=== PATIENT | female | born 1970 | race Caucasian/White ===

== ENCOUNTER 2016-05-26 18:51 | Emergency (ER) | payer BC ==
--- NOTE | 2016-05-26 19:27 | UC ---
Cardiac HPI - HPI Summary HPI Summary: The patient comes in today for: 1. Chest pain: Onset: "Several weeks"--starting as a "pinchy" pain. But, has gotten worse in more constant and in severity. Palliative/provocative: Activity, deep breaths, eating, body position--all don' t affect it. Quality: Pressure. "Like I swallowed something too big." Region: Retrosternal, possibly pain in the neck. Severity: 04/25 Time: Constant. Associated symptoms: Previous evaluation: She has been seen by her primary care provider about this 3 days ago. She has a stress test scheduled on the of this month. She has blood test scheduled for the . Since the pressure got worse, she called her primary care provider who told her to go to the ER or [facility]. She came here "because it is cheaper and closer." Dypsnea: None. But, she will sigh more often. She states that this feels good. Wheezing: None. Previous heart or lung disease: She has "PVC's." She had a stress test 2 year ago (from her description, it sounds like a nuclear stress test) (-). CAD risk factors: Smoker: (-). HTN: (-). DM: (-). Previous disease: (-). Fm Hx: (+)--brother has had "a couple of strokes in his 40's." Cholesterol: (?) . Nausea: None. * - History of Current Complaint Chief Complaint: UCChestPain Stated Complaint: CHEST COMPLAINT Time Seen by Provider: 05/26/16 18:55 Hx Obtained From: Patient - Allergy/Home Medications Allergies/Adverse Reactions: Allergies Allergy/AdvReac Type Severity Reaction Status Date / Time No Known Allergies Allergy Verified 12/19/14 06:45 Home Medications: Home Medications NK [No Home Medications Reported] 05/26/16 [History Confirmed 05/26/16] PMH/Surg Hx/FS Hx/Imm Hx Previously Healthy: Yes Endocrine History Of: Denies: Diabetes, Thyroid Disease, Hyperthyroidism, Hypothyroidism, Dyslipidemia Cardiovascular History Of: Denies: Cardiac Disorders, Hypertension, Pacemaker/ICD, Myocardial Infarction , Congestive Heart Failure, Atrial Fibrillation, Deep Vein Thrombosis, Bleeding Disorders Respiratory History Of: Denies: COPD, Asthma, Bronchitis, Pneumonia, Pulmonary Embolism GI/ History Of: Denies: Gastroesophageal Reflux, Ulcer, Gastrointestinal Bleed, Gall Bladder Disease, Kidney Stones, Diverticulitis, Renal Disease, Urosepsis Neurological History Of: Reports: Migraine - She does not take any medications for them. Denies: TIA, CVA, Dementia, Seizures Psychological History Of: Denies: Anxiety, Depression, Bipolar Disorder, Schizophrenia, Post Traumatic Stress Disorder Cancer History Of: Denies: Lung Cancer, Colorectal Cancer, Breast Cancer, Prostate Cancer, Cervical Cancer Other History Of: Negative For: HIV, Hepatitis B, Hepatitis C, Anticoagulant Therapy - Surgical History Surgical History: Yes Surgery Procedure, Year, and Place: CSECTION 2008, 2010 [facility] [place] - Family History Known Family History: Positive: Cardiac Disease, Hypertension - Social History Occupation: Employed Full-time Alcohol Use: None Substance Use Type: None Smoking Status (MU): Never Smoked Tobacco Review of Systems Constitutional: Negative Skin: Negative Eyes: Negative ENT: Negative Respiratory: Negative Cardiovascular: Chest Pain Gastrointestinal: Negative Genitourinary: Negative All Other Systems Reviewed And Are Negative: Yes Physical Exam Triage Information Reviewed: Yes Appearance: Well-Appearing, No Pain Distress, Well-Nourished, Other: - She is friendly, cooperative, and animated. Vital Signs Reviewed: Yes Eyes: Positive: Conjunctiva Clear. Negative: Discharge ENT: Positive: Hearing grossly normal. Negative: Pharyngeal erythema, Nasal congestion, Nasal drainage, TM bulging, TM dull, TM red, Tonsillar swelling, Tonsillar exudate Dental: Negative: Gross Decay/Caries @, Dental Fracture @ Neck: Positive: Supple, Nontender, No Lymphadenopathy. Negative: Nuchal Rigidity Respiratory: Positive: Lungs clear, No respiratory distress, No accessory muscle use. Negative: Crackles, Wheezing Cardiovascular: Positive: RRR, No Murmur Abdomen Description: Positive: Nontender, No Organomegaly, Soft. Negative: Distended, Guarding Musculoskeletal: Positive: Strength Intact, ROM Intact, No Edema, Other: - Pressing on the sternum did not reproduce her chest discomfort symptoms. Neurological: Positive: Alert, Muscle Tone Normal Psychological: Positive: Age Appropriate Behavior, Consolable Skin: Negative: rashes, breakdown Diagnostics - Laboratory Diagnostic Studies Completed/Ordered: EKG: Rate: 79. Rhythm: sinus. Ectopy: None. Acute changes: ST elevation in V1-2? - Assessment/Plan Course Of Treatment: The patient was told that I did not see any obvious changes on the EKG that would be strong evidence for a heart attack, but we are not able to rule out IL's here in the [facility]. Therefore, my recommendation, if she wanted to rule out cardiac problem (which I told her was safest) was to go to the ER. She wanted to go via private car. - Clinical Impression Provider Diagnoses: Chest pain - Physician Notifications Discussed Patient Care With: Ms. Carey Mallyjono Discharge - Discharge Plan Condition: Stable Disposition: AGAINST MEDICAL ADVICE
[2016-05-26 20:00] VITALS: BP 117/70
== END 2016-05-26 19:57 | disposition left against medical advice (07) ==
LOC: UCEAST 18:51
DX: R07.89 Other chest pain (principal)
CPT/HCPCS: 93005; 99212; G0463

== ENCOUNTER 2016-05-26 20:10 | Observation (INO) | payer BC ==
[2016-05-26] MEDS ORDERED: Aspirin Low Dose CHEW TAB* 81 MG PO ONE (20:45)
[2016-05-26 21:15] LABS: Hematocrit 42 % (35-47); Hemoglobin 14.2 g/dl (12.0-16.0); Mean Corpuscular HGB Conc 34 g/dl (31-36); Mean Corpuscular Hemoglobin 29 pg (27-31); Mean Corpuscular Volume 86 fL (80-97); Mean Platelet Volume 9 um3 (7.4-10.4); Red Blood Count 4.91 10^6/ul (4.0-5.4); Red Cell Distribution Width 14 % (10.5-15); White Blood Count 8.3 10^3/ul (3.5-10.8)
[2016-05-26 21:31] LABS: Albumin 4.6 g/dL (3.2-5.2); Calcium 9.7 mg/dL (8.6-10.3); EGFR African American 100.2 (>60); EGFR Non-African American 77.9 (>60); Globulin 3.1 g/dL (2-4); Potassium 3.6 mmol/L (3.5-5.0); Total Bilirubin 0.4 mg/dL (0.2-1.0); Total Protein 7.7 g/dL (6.4-8.9)
[2016-05-26] MEDS ORDERED: Aspirin TAB* 325 MG PO ONE (22:04)
[2016-05-26] MEDS ORDERED: Nitroglycerin 2% OINT* 1 GM PAK TOPICAL ONE (22:05)
[2016-05-26] MEDS ORDERED: Ondansetron INJ* 2 MG/ML VIAL IV PRN (22:50)
[2016-05-26] MEDS ORDERED: Acetaminophen TAB* 325 MG PO PRN (22:50)
--- NOTE | 2016-05-26 22:58 | RAD ---
INDICATION: Chest pain. COMPARISON: Comparison is made with a prior chest x-ray study from February 17, 2013. TECHNIQUE: Dual-energy PA and lateral views of the chest were obtained. FINDINGS: The heart is within normal limits in size. Mediastinal and hilar contours appear within normal limits. The lungs are hyperinflated and clear. No pneumothorax or pleural effusion is seen. Nipple shadows project as nodules above both lung bases as was noted on the prior study. IMPRESSION: FINDINGS CONSISTENT WITH COPD, NO EVIDENCE FOR ACUTE FINDING.
--- NOTE | 2016-05-26 23:08 | ED ---
abbey Kramer Timothy, scribed for JosevirgieKapil on 05/26/16 at 2144 . HPI Chest Pain - HPI Summary HPI Summary: Beth Vivar is a 45 yo female sent here from [facility] for her intermittent 2/10 CP and tightness for the past 2 weeks, worse and constant today. She states there are no aggravating or alleviating factors. She denies nusea, vomiting, or dizziness. Her MHx includes PVC's, migraine, post- depression. - History of Current Complaint Chief Complaint: EDChestPainROMI Time Seen by Provider: 05/26/16 21:36 Hx Obtained From: Patient Onset/Duration: Started Weeks Ago, Still Present, Worse Since - today Timing: Constant Initial Severity: Moderate Current Severity: Moderate Pain Intensity: 2 Pain Scale Used: 0-10 Numeric Chest Pain Location: Mid Sternal Chest Pain Radiates: No Character: Tightness Aggravating Factor(s): Nothing Alleviating Factor(s): Nothing Associated Signs and Symptoms: Positive: Chest Pain - Allergy/Home Medications Allergies/Adverse Reactions: Allergies Allergy/AdvReac Type Severity Reaction Status Date / Time No Known Allergies Allergy Verified 12/19/14 06:45 PMH/Surg Hx/FS Hx/Imm Hx Endocrine/Hematology History: Denies: Hx Anticoagulant Therapy, Hx Diabetes, Hx Thyroid Disease Cardiovascular History: Reports: Other Cardiovascular Problems/Disorders - PT STATES A HX OF PVC's Denies: Hx Congestive Heart Failure, Hx Deep Vein Thrombosis, Hx Hypertension , Hx Myocardial Infarction, Hx Pacemaker/ICD Respiratory History: Denies: Hx Asthma, Hx Chronic Obstructive Pulmonary Disease (COPD), Hx Lung Cancer, Hx Pneumonia, Hx Pulmonary Embolism GI History: Denies: Hx Gall Bladder Disease, Hx Gastrointestinal Bleed, Hx Ulcer, Hx Urosepsis History: Denies: Hx Kidney Stones, Hx Renal Disease Sensory History: Reports: Hx Contacts or Glasses - GLASSES Denies: Hx Hearing Aid Opthamlomology History: Reports: Hx Contacts or Glasses - GLASSES Neurological History: Reports: Hx Migraine - She does not take any medications for them. Denies: Hx Dementia, Hx Seizures, Hx Transient Ischemic Attacks (TIA) Psychiatric History: Denies: Hx Anxiety, Hx Depression, Hx Schizophrenia, Hx Bipolar Disorder - Surgical History Surgery Procedure, Year, and Place: CSECTION 2008, 2010 [facility] Hx Anesthesia Reactions: No Infectious Disease History: No Infectious Disease History: Denies: Hx Clostridium Difficile, Hx Hepatitis, Hx Human Immunodeficiency Virus (HIV), Hx of Known/Suspected MRSA, Hx Shingles, Hx Tuberculosis, Hx Known/ Suspected VRE, Hx Known/Suspected VRSA, History Other Infectious Disease, Traveled Outside the [place] in Last 30 Days - Family History Known Family History: Positive: Cardiac Disease, Hypertension - Social History Alcohol Use: None Substance Use Type: Reports: None Smoking Status (MU): Never Smoked Tobacco Review of Systems Constitutional: Negative Eyes: Negative ENT: Negative Positive: Chest Pain Respiratory: Negative Negative: Shortness Of Breath Gastrointestinal: Negative Negative: Abdominal Pain, Vomiting, Nausea Genitourinary: Negative Musculoskeletal: Negative Skin: Negative Neurological: Negative Psychological: Normal All Other Systems Reviewed And Are Negative: Yes Physical Exam Triage Information Reviewed: Yes Vital Signs On Initial Exam: Initial Vitals Temp Pulse Resp BP Pulse Ox 97.9 F 93 16 114/72 100 05/26/16 20:11 05/26/16 20:11 05/26/16 20:11 05/26/16 20:11 05/26/16 20:11 Vital Signs Reviewed: Yes Appearance: Positive: Well-Appearing, No Pain Distress, Well-Nourished Skin: Positive: Warm, Skin Color Reflects Adequate Perfusion, Dry Head/Face: Positive: Normal Head/Face Inspection Eyes: Positive: EOMI, YAN ENT: Positive: Normal ENT inspection Neck: Positive: Supple, Nontender Respiratory/Lung Sounds: Positive: Clear to Auscultation, Breath Sounds Present Cardiovascular: Positive: RRR, Pulses are Symmetrical in both Upper and Lower Extremities Musculoskeletal: Positive: Normal, Strength/ROM Intact Neurological: Positive: Normal, Sensory/Motor Intact, Alert, Oriented to Person Place, Time Psychiatric: Positive: Normal Diagnostics - Vital Signs Vital Signs Temp Pulse Resp BP Pulse Ox 05/26/16 21:08 98.0 F 75 16 121/66 100 05/26/16 20:11 97.9 F 93 16 114/72 100 - Laboratory Lab Results: Lab Results 05/26/16 05/26/16 05/26/16 Range/Units 21:06 21:06 21:06 WBC 8.3 (3.5-10.8) 10^3/ul RBC 4.91 (4.0-5.4) 10^6/ul Hgb 14.2 (12.0-16.0) g/dl Hct 42 (35-47) % MCV 86 (80-97) fL MCH 29 (27-31) pg MCHC 34 (31-36) g/dl RDW 14 (10.5-15) % Plt Count 229 (150-450) 10^3/ul MPV 9 (7.4-10.4) um3 Neut % (Auto) 51.3 (38-83) % Lymph % (Auto) 35.9 (25-47) % [place] % (Auto) 8.5 (1-9) % Eos % (Auto) 3.1 (0-6) % Baso % (Auto) 1.2 (0-2) % Absolute Neuts (auto) 4.3 (1.5-7.7) 10^3/ul Absolute Lymphs (auto) 3.0 (1.0-4.8) 10^3/ul Absolute Monos (auto) 0.7 (0-0.8) 10^3/ul Absolute Eos (auto) 0.3 (0-0.6) 10^3/ul Absolute Basos (auto) 0.1 (0-0.2) 10^3/ul Absolute Nucleated RBC 0.01 10^3/ul Nucleated RBC % 0.1 INR (Anticoag Therapy) 1.00 (0.89-1.11) Sodium 137 (133-145) mmol/L Potassium 3.6 (3.5-5.0) mmol/L Chloride 104 (101-111) mmol/L Carbon Dioxide 27 (22-32) mmol/L Anion Gap 6 (2-11) mmol/L BUN 12 (6-24) mg/dL Creatinine 0.80 (0.51-0.95) mg/dL Est GFR ( Amer) 100.2 (>60) Est GFR (Non-Af Amer) 77.9 (>60) BUN/Creatinine Ratio 15.0 (8-20) Glucose 100 (70-100) mg/dL Calcium 9.7 (8.6-10.3) mg/dL Total Bilirubin 0.40 (0.2-1.0) mg/dL AST 14 (13-39) U/L ALT 11 (7-52) U/L Alkaline Phosphatase 61 (34-104) U/L Troponin I 0.00 (<0.04) ng/mL Total Protein 7.7 (6.4-8.9) g/dL Albumin 4.6 (3.2-5.2) g/dL Globulin 3.1 (2-4) g/dL Albumin/Globulin Ratio 1.5 (1-3) Result Diagrams: 05/26/16 21:06 05/26/16 21:06 Lab Statement: Any lab studies that have been ordered have been reviewed, and results considered in the medical decision making process. - Radiology CXR Xray Interpretation: No Acute Changes - IMPRESSION: FINDINGS CONSISTENT WITH COPD, NO EVIDENCE FOR ACUTE FINDING. Radiology Interpretation Completed By: Radiologist - EKG 2215 Cardiac Rate: NL EKG Interpretation: NSR @ 73 BPM, nonspecific ST changes Chest Pain Course/Dx - Course Assessment/Plan: Beth Vivar is a 45 yo female presenting to [facility] with intermittent 2/10 CP for the past 2 weeks, worse and constant today. Afte review of her lab work and imaging studies, as well as discussion with Dr. Menjivar, she will be admitted to [facility] for her CP to rule out PR. - Chest Pain Differential Diagnosis/HQI/PQRI: Acute PR, ACS, Angina, CHF, Chest Wall, Lower Respiratory Infection, Pulmonary Edema - Diagnoses Provider Diagnoses: Chest pain - Provider Notifications Discussed Care Of Patient With: 2224 - Dr. Menjivar (hospitalist) - discussed Pt condition, will admit to r/o PR Instructed by Provider To: Admit As Inpatient Discharge - Discharge Plan Condition: Stable Disposition: ADMITTED TO [facility] Referrals: Ritu Jordan MD [Primary Care Provider] - The documentation as recorded by the abbey haile Timothy accurately reflects the service I personally performed and the decisions made by , Kapil Wellington.
--- NOTE | 2016-05-27 02:40 | HP ---
HISTORY AND PHYSICAL: DATE OF ADMISSION: 05/26/16 PRIMARY CARE PROVIDER: Dr. Jordan. ATTENDING PHYSICIAN WHILE IN THE HOSPITAL: Dr. Bertram Menjivar* (report dictated by Beatriz Kang NP). CHIEF COMPLAINT: Chest pain. HISTORY OF PRESENTING ILLNESS: Mrs. Vivar is a 45-year-old female patient with a history of PVCs, migraines, and anxiety. She comes into the ER today stating the last several weeks, she has had occasional pinching in her chest off and on. She has noticed the frequencies increased over the weekend and the duration as well. She says that this discomfort does not come along with exertion. There is no associated nausea or diaphoresis with this discomfort. She has been following closely with Dr. Jordan, and Dr. Jordan had ordered an outpatient stress test and it was going to be done on the . She was concerned today though because the discomfort changed. She had a knot in the center of her chest, as she described it, and more of a discomfort; it really was not any pain. She had no shortness of breath. She has no recent trips or travel, no leg pain, calf tenderness or swelling. She states that she had not had any recent URI symptoms or any fevers or chills, and she says that the discomfort does not get worse with a deep breath. She says she has been feeling extremely anxious though over the last several weeks related to her personal life, but she was concerned and came in, was evaluated Dr. Wellington. There was concern because she had the chest discomfort. She says that today the chest discomfort was there all day, sometimes worse at times, but really there all day today and we were asked to evaluate for admission. PAST MEDICAL HISTORY: Significant for: 1. PVC. 2. Migraine. 3. Anxiety. PAST SURGICAL HISTORY: She does have a history of D and C, , bladder repair and tubal ligation. HOME MEDICATIONS: She has denied. ALLERGIES TO MEDICATIONS: No known drug allergies. FAMILY HISTORY: Mother has high blood pressure. Father has history of dementia. Her brother had a history of a CVA. SOCIAL HISTORY: She does not smoke. She does not drink. She has 2 children. Surrogate decision maker is her . She is a veterinary tech. REVIEW OF SYSTEMS: There is no documented fever. She denied having any significant weight change. There was no double vision. There is no ear discharge. She denies having any rhinorrhea. There is no sore throat. No thyroid enlargement. There is chest pain per my HPI. There is no orthopnea, no nocturnal dyspnea. There is no abdominal pain. No nausea, no vomiting. No dysuria, no frequency, no seizure. No loss of consciousness. No pruritus and no skin ulcerations. Review of 14 systems completed, all others negative. PHYSICAL EXAMINATION GENERAL: Ms. Vivar is a 45-year-old female patient. She does not appear to be in any acute distress. She is sitting in the ER stretcher. She is awake, alert , and oriented x3. VITAL SIGNS: Blood pressure 119/65 with a pulse of 78, respirations 18, O2 sat of 100%, temperature 98.0. HEENT: Head atraumatic, normocephalic. Eyes: EOMs intact. Sclerae anicteric , not pale. Throat: Oral mucosa appears to be moist. No oropharyngeal erythema. NECK: Supple. LUNGS: Clear to auscultation bilaterally. No wheezes, rales or rhonchi. HEART: Sounds S1, S2. Regular rate and rhythm. No murmurs, rubs, or gallops. ABDOMEN: Soft, flat, nontender. Bowel sounds present. EXTREMITIES: Pulses were 2+ throughout. She is able to move all 4 extremities with 5/5 strength. NEUROLOGIC: The patient is awake. She is alert. She is oriented x3. She had no gross focal deficits. SKIN: Grossly intact. DIAGNOSTIC STUDIES/LABORATORY DATA: Today revealed a WBC of 8.3, RBC of 4.91, hemoglobin 14.2, hematocrit 42, platelet count 329, INR was 1. Sodium 137, potassium 2.6, chloride 104, bicarb 27. BUN 12, creatinine 0.80, glucose 100, calcium 9.7. Total bili 0.4, AST 14, ALT 11, alk phos 61. Troponin 0. Chest x-ray shows no acute infiltrates, pulmonary edema, and there was no effusions noted. Normal cardiac silhouette. She had an EKG obtained today at urgent care and here in the ER. EKG did show a normal sinus rhythm. No ST elevations or T- wave inversions were noted, rate of 70. Old medical records were reviewed. ASSESSMENT AND PLAN: Mrs. Vivar is a 45-year-old female patient coming into the ER today with complaints of chest discomfort. She will be admitted under observation status for: 1. Chest pain. At this point, the chest story is atypical with the discomfort today. It sounds like it was waxing and waning which makes me concerned. I do think she would benefit from a repeat troponins, EKG, lipid panel, A1c, aspirin and a stress test in the morning and telemetry overnight. 2. Anxiety. Continue with supportive care. 3. Migraine. She has p.r.n. Tylenol ordered. 4. Premature ventricular contractions. She will be on telemetry. We will monitor. Her lytes are stable. 5. DVT prophylaxis. We will place her on SCDs. 6. Fluids, electrolytes and nutrition. She will have a heart healthy diet and NPO after midnight. 7. Code status. Full code. TIME SPENT: On the admission was 60 minutes, greater than half the time was spent [id number] with the patient, obtaining my history and physical, the other half time was spent going over the plan of care with the patient and implementing my plan of care. I did discuss the plan of care with my attending, Dr. Menjivar; he is in agreement. BEATRIZ KANG NP CC: Dr. Jordan* [id number]/CPS #: [id number] MTDD
[2016-05-27 04:57] LABS: Hematocrit 40 % (35-47); Hemoglobin 13.3 g/dl (12.0-16.0); Mean Corpuscular HGB Conc 34 g/dl (31-36); Mean Corpuscular Hemoglobin 29 pg (27-31); Mean Corpuscular Volume 86 fL (80-97); Mean Platelet Volume 9 um3 (7.4-10.4); Red Blood Count 4.65 10^6/ul (4.0-5.4); Red Cell Distribution Width 13 % (10.5-15); White Blood Count 7.3 10^3/ul (3.5-10.8)
[2016-05-27 05:08] LABS: BUN/Creatinine Ratio 14.8 (8-20); Calcium 9.3 mg/dL (8.6-10.3); EGFR African American 98.8 (>60); EGFR Non-African American 76.8 (>60); HDL Cholesterol 51.4 mg/dL; Potassium 3.4 mmol/L (3.5-5.0)
[2016-05-27 07:25] VITALS: BP 118/66
[2016-05-27] MEDS ORDERED: Potassium Chlor TAB* 20 MEQ TAB.ER PO ONE (08:34)
[2016-05-27] MEDS ORDERED: Aspirin Low Dose CHEW TAB* 81 MG PO SCH (09:00)
--- NOTE | 2016-05-27 13:05 | RAD ---
HISTORY: Chest pain COMPARISONS: None TECHNIQUE: A 1 day stress/rest myocardial perfusion study was performed, with exercise stress. The exercise portion was performed using the Franklyn protocol, for a total METs of 12.8. The stress portion was monitored by Dr. Li. Gated SPECT imaging was performed, with CT-based attenuation correction DOSE: Stress: Technetium 99m tetrofosmin, 25.52 millicuries, injected at 11:32 AM on May 27, 2016 Rest: Technetium 99m tetrofosmin, 10.26 millicuries, injected at 9:15 AM on May 27, 2016 Pharmacologic agent: None FINDINGS: CARDIAC MONITORING: Peak heart rate of 180 bpm, 107% of predicted EF: 75 % TID: 1.08 MOTION: Normal motion, with normal wall thickening. PERFUSION: There is a small, partially reversible defect of the septum OTHER: None IMPRESSION: SMALL PARTIALLY REVERSIBLE PERFUSION DEFECT OF THE SEPTUM. NORMAL EJECTION FRACTION ASSESSMENT: LOW RISK. Based on imaging criteria from ACC/AHA 2002. Guideline Update for the Management of Patient's with Chronic Stable Angina, table 23. Noninvasive Risk Stratification.
--- NOTE | 2016-05-27 13:44 | PN ---
Subjective Date of Service: 05/27/16 Interval History: Patient seen and examined at bedside following stress test. She denies CP, SOB, abd pain, n/v. She reports no further episodes of chest discomfort and is anxious to go home given the weather conditions. We discussed her stress test results and other possible causes of chest pain, which she will pursue with her PCP. Patient will call for f/u appointment. Telemetry: SR 60s-70s Family History: Unchanged from Admission Social History: Unchanged from Admission Past Medical History: Unchanged from Admission Objective Active Medications: Acetaminophen (Tylenol Tab*) 650 mg PO Q4H PRN PRN Reason: FEVER/PAIN Aspirin (Aspirin Low Dose Tab*) 81 mg PO DAILY HAL Last Admin: 05/27/16 08:31 Dose: 81 mg Ondansetron HCl (Zofran Inj*) 4 mg IV Q6H PRN PRN Reason: NAUSEA Vital Signs 05/26/16 05/26/16 05/26/16 23:30 23:41 23:43 Temperature Pulse Rate 77 74 Respiratory 18 13 16 Rate Blood Pressure 106/65 (mmHg) O2 Sat by Pulse 98 99 Oximetry 05/27/16 05/27/16 05/27/16 00:00 00:30 01:00 Temperature 98.5 F Pulse Rate 68 Respiratory 19 15 15 Rate Blood Pressure 110/67 (mmHg) O2 Sat by Pulse 100 Oximetry 05/27/16 05/27/16 05/27/16 01:01 02:00 03:00 Temperature Pulse Rate Respiratory 15 15 14 Rate Blood Pressure (mmHg) O2 Sat by Pulse Oximetry 05/27/16 05/27/16 05/27/16 03:26 04:00 05:00 Temperature 98.7 F Pulse Rate 83 Respiratory 16 18 15 Rate Blood Pressure 102/66 (mmHg) O2 Sat by Pulse 99 Oximetry 05/27/16 05/27/16 05/27/16 05:59 06:00 07:00 Temperature Pulse Rate Respiratory 15 14 18 Rate Blood Pressure (mmHg) O2 Sat by Pulse Oximetry 05/27/16 05/27/16 05/27/16 07:14 07:21 08:00 Temperature 97.9 F Pulse Rate 65 Respiratory 22 16 17 Rate Blood Pressure 118/66 (mmHg) O2 Sat by Pulse 100 Oximetry 05/27/16 09:00 Temperature Pulse Rate Respiratory 14 Rate Blood Pressure (mmHg) O2 Sat by Pulse Oximetry Oxygen Devices in Use Now: None Appearance: Female patient, OOB to chair, in NAD Eyes: PERRLA Ears/Nose/Mouth/Throat: Clear Oropharnyx, Mucous Membranes Moist Neck: NL Appearance and Movements; NL JVP Respiratory: Symmetrical Chest Expansion and Respiratory Effort, Clear to Auscultation Cardiovascular: NL Sounds; No Murmurs; No JVD, RRR Abdominal: NL Sounds; No Tenderness; No Distention Extremities: No Edema Neurological: Alert and Oriented x 3 Lines/Tubes/Other Access: Clean, Dry and Intact Peripheral IV Nutrition: Taking PO's Result Diagrams: 05/27/16 04:13 05/27/16 04:13 Additional Lab and Data: Lab Results 05/26/16 05/26/16 05/26/16 Range/Units 21:06 21:06 21:06 WBC 8.3 (3.5-10.8) 10^3/ul RBC 4.91 (4.0-5.4) 10^6/ul Hgb 14.2 (12.0-16.0) g/dl Hct 42 (35-47) % MCV 86 (80-97) fL MCH 29 (27-31) pg MCHC 34 (31-36) g/dl RDW 14 (10.5-15) % Plt Count 229 (150-450) 10^3/ul MPV 9 (7.4-10.4) um3 Neut % (Auto) 51.3 (38-83) % Lymph % (Auto) 35.9 (25-47) % Sterling % (Auto) 8.5 (1-9) % Eos % (Auto) 3.1 (0-6) % Baso % (Auto) 1.2 (0-2) % Absolute Neuts (auto) 4.3 (1.5-7.7) 10^3/ul Absolute Lymphs (auto) 3.0 (1.0-4.8) 10^3/ul Absolute Monos (auto) 0.7 (0-0.8) 10^3/ul Absolute Eos (auto) 0.3 (0-0.6) 10^3/ul Absolute Basos (auto) 0.1 (0-0.2) 10^3/ul Absolute Nucleated RBC 0.01 10^3/ul Nucleated RBC % 0.1 INR (Anticoag Therapy) 1.00 (0.89-1.11) Sodium 137 (133-145) mmol/L Potassium 3.6 (3.5-5.0) mmol/L Chloride 104 (101-111) mmol/L Carbon Dioxide 27 (22-32) mmol/L Anion Gap 6 (2-11) mmol/L BUN 12 (6-24) mg/dL Creatinine 0.80 (0.51-0.95) mg/dL Est GFR ( Amer) 100.2 (>60) Est GFR (Non-Af Amer) 77.9 (>60) BUN/Creatinine Ratio 15.0 (8-20) Glucose 100 (70-100) mg/dL Calcium 9.7 (8.6-10.3) mg/dL Total Bilirubin 0.40 (0.2-1.0) mg/dL AST 14 (13-39) U/L ALT 11 (7-52) U/L Alkaline Phosphatase 61 (34-104) U/L Troponin I 0.00 (<0.04) ng/mL Total Protein 7.7 (6.4-8.9) g/dL Albumin 4.6 (3.2-5.2) g/dL Globulin 3.1 (2-4) g/dL Albumin/Globulin Ratio 1.5 (1-3) Assess/Plan/Problems-Billing Assessment: Ms. Vivar is a 45 yo female with a PMH of PVCs, migraines and anxiety who presented to the ED on 05/26/16 with concern for chest pain. - Patient Problems (1) Chest pain Code(s): R07.9 - CHEST PAIN, UNSPECIFIED Comment: Troponins flat and unremarkable. No significant ST changes. Stress test with no ST changes of ischemia. On the nuclear stress test, there is a small partially reversible defect of the septum. I did review this finding with Dr. Hutchinson, who stated that no further intervention is needed at this time. Outpatient f/u with PCP. Lipid profile and HgbA1c WNL. (2) PVC (premature ventricular contraction) Code(s): I49.3 - VENTRICULAR PREMATURE DEPOLARIZATION Comment: Recommend holter monitor if persists. Outpatient follow-up. (3) Anxiety Code(s): F41.9 - ANXIETY DISORDER, UNSPECIFIED Comment: Supportive care. (4) DVT prophylaxis Code(s): WKG8433 - Comment: SCDs. Status and Disposition: OBV admit. D/c to home.
--- NOTE | 2016-05-28 02:32 | DS ---
MEDICINE DISCHARGE SUMMARY: DATE OF ADMISSION: 05/26/16 DATE OF DISCHARGE: 05/27/16 PRIMARY CARE PHYSICIAN: Dr. Jordan. PROVIDER: Adriel Dumont NP. ATTENDING PHYSICIAN: Dr. Karen Lora* (dictated by Adriel Dumont NP). PRIMARY CARE PHYSICIAN: Ritu Jordan MD. PRIMARY DISCHARGE DIAGNOSIS: Chest pain. SECONDARY DISCHARGE DIAGNOSES: 1. History of premature ventricular contractions. 2. History of migraines. 3. Anxiety. MEDICATIONS AT DISCHARGE: No home medications. HOSPITAL COURSE AND STAY: For further details, please refer to the H and P provided by Mikhail Kang NP, on 05/26/16. In summary, Ms. Vivar is a 45-year- old female who presented to the ED with concern for occasional chest discomfort that she describes as intermittent pinching. This discomfort did not accompany exertion and there was no associated nausea or diaphoresis. She has had no shortness of breath. No recent trips or travel. No leg pain, no calf tenderness or swelling. She has had no recent URI symptoms, fevers, or chills. Her chest pain did sound atypical. It was noted that the patient did have an outpatient stress test scheduled in the upcoming weeks; however, with her waxing and waning chest pain, she was admitted for troponins, EKG, lab testing, and a stress test. The patient continued to deny any chest pain overnight. Her troponins were unremarkable at 0.00, 0.01, and 0.00 respectively. The patient has a hemoglobin A1c of 4.8 and her triglycerides were 39, cholesterol 144, LDL 85, and HDL 51.4. The patient underwent a stress test this morning. It showed baseline EKG abnormalities, which consisted of subtle ST-T wave abnormalities in leads II, III, and aVF on standing, ST downsloping, and T-wave inversion in leads II, III, aVF, V4 through V6 with heart rate of 101. The patient exercised by standard [place] protocol for 10 minutes achieving 12.8 METS heart rate to 100% age predicted. She had normal 1-minute recovery heart rate. Normal increase in blood pressure with exercise. No anginal symptoms provoked. Baseline EKG abnormalities are described with exercise. There are no ST changes of ischemia. EKG reverted back to her baseline abnormalities late recovery. No arrhythmias provoked. Her nuclear medicine scan report shows an EF of 75% with normal motion and normal wall thickening. There is a small partially reversible defect in the septum. Her assessment is low risk. I did discuss this with Dr. Hutchinson, the parts cataloger, who stated the patient should follow up with her primary care physician. No further interventions are required. The patient states that she had no further concerning symptoms here in the hospital and felt that this may be related to other issues, but she will pursue this with Dr. Jordan. The patient declined to have nitro paste while she was here and declined any other interventions. She desired a stress test and is now requesting to go home. CONCERNS AT DISCHARGE: Ms. Vivar will be discharged to home on 05/27/16 for plan to follow up with Dr. Jordan. Offices are closed today; however, we will have our planner chief help set up an appointment for the patient later on this week. The patient said that she also has an appointment scheduled later on this month with her physician. DIET: May resume regular diet. ACTIVITY: As tolerated. CONDITION: Stable. DISPOSITION: To home. TIME SPENT: Time spent on this discharge was approximately 40 minutes. Again, this is only a brief summary of the patient's hospital course and stay. For further details, please refer to the full medical record. If you have any further questions or need further assistance, please feel free to contact me at . ADRIEL DUMONT NP CC: Dr. Jordan* [id number]/[facility] #: [id number] DANIELLE
== END 2016-05-27 14:00 | disposition home or self-care (01) ==
LOC: ED 20:10 → MEDTELE 23:07
PROVIDERS: ADMIT Hospitalist; ATTEND Internal Medicine
DX: R07.9 Chest pain, unspecified (principal); I49.3 Ventricular premature depolarization; F41.9 Anxiety disorder, unspecified; Z82.49 Family history of ischemic heart disease and other diseases of the circulatory system
CPT/HCPCS: 36415; 71020; 78452; 80048; 80053; 80061; 83036; 84484; 85025; 85610; 93005; 93017; 96374; 99283; A9270-GY; A9502; G0378

== ENCOUNTER 2017-10-18 14:01 | Emergency (ER) | payer BC ==
[2017-10-18 14:11] VITALS: BP 118/70
--- NOTE | 2017-10-18 15:49 | UC ---
Complaint Female HPI - HPI Summary HPI Summary: 46 y/o female presents to the urgent care c/o burning pain and frequency on urination since Thursday morning. Pt reports pelvic pressure. Pain w/ urination is 5/10. Pt has taking Azo OTC and cranberry pills and drinking plenty of water to alleviate symptoms. Pt denies flank pain, vaginal D/C, fever, SOB, chest pain , abdominal pain, N/v/D. - History Of Current Complaint Chief Complaint: UCGU Stated Complaint: POSS UTI Time Seen by Provider: 10/18/17 15:44 Hx Obtained From: Patient Hx Last Menstrual Period: September 30, 2017 Onset/Duration: Gradual Onset, Lasting Days - 3 days, Still Present, Worse Since - yesterday Timing: Intermittent Severity Initially: Mild Severity Currently: Moderate Pain Intensity: 5 Pain Scale Used: 0-10 Numeric Character: Burning Aggravating Factor(s): Urination Alleviating Factor(s): Nothing Associated Signs And Symptoms: Negative: Fever, Back Pain, Vaginal Bleeding/ Discharge, Vaginal Discharge, Genital Swelling - Risk Factors Ectopic Risk Factor: Negative Ovarian Torsion Risk Factor: Negative - Allergies/Home Medications Allergies/Adverse Reactions: Allergies Allergy/AdvReac Type Severity Reaction Status Date / Time No Known Allergies Allergy Verified 12/19/14 06:45 Home Medications: Home Medications Cranberry 10/18/17 [History] Pumpkin Seed Extract/Soy Germ [Azo Bladder Control Capsule] 10/18/17 [History] PMH/Surg Hx/FS Hx/Imm Hx Previously Healthy: Yes - Pt denies PMHX Other History Of: Negative For: HIV, Hepatitis B, Hepatitis C, Anticoagulant Therapy - Surgical History Surgical History: Yes Surgery Procedure, Year, and Place: CSECTION 2008, 2010 [facility] [place]. tubal ligation 2014 - Family History Known Family History: Positive: Cardiac Disease, Hypertension Family History: breast cancer - Social History Occupation: Employed Full-time Lives: With Family Alcohol Use: None Substance Use Type: None Smoking Status (MU): Never Smoked Tobacco Review of Systems Constitutional: Negative Skin: Negative Eyes: Negative ENT: Negative Respiratory: Negative Cardiovascular: Negative Gastrointestinal: Negative Genitourinary: Dysuria, Frequency, Urgency Motor: Negative Neurovascular: Negative Musculoskeletal: Negative Neurological: Negative Psychological: Negative Is Patient Immunocompromised?: No All Other Systems Reviewed And Are Negative: Yes Physical Exam - Summary Physical Exam Summary: VITAL SIGNS: Reviewed. GENERAL: Patient is a well developed and nourished female who is sitting comfortable in the examining table. Patient is not in any acute respiratory distress. HEAD AND FACE: No signs of trauma. No ecchymosis, hematomas or skull depressions. No sinus tenderness. EYES: PERRLA, EOMI x 2, No injected conjunctiva, clear watery eyes, no nystagmus. No photophobia. EARS: Hearing grossly intact. Ear canals and tympanic membranes are within normal limits. MOUTH: pharynx with no erythema, no exudates,no palatal petechiae. no B/L tonsillar enlargement Uvula in midline. NECK: Supple, trachea is midline, no lymphadenopathy, no JVD, no carotid bruit, no c-spine tenderness, neck with full ROM. CHEST: Symmetric, no tenderness at palpation LUNGS: Clear to auscultation bilaterally. No wheezing or crackles. CVS: Regular rate and rhythm, S1 and S2 present, no murmurs or gallops appreciated. ABDOMEN: Soft, non-tender. No signs of distention. No rebound no guarding, and no masses palpated. Bowel sounds are normal. BACK:no scoliosis or lesions, non tender to palpation, No B/L CVA tenderness EXTREMITIES: FROM in all major joints, no edema, no cyanosis or clubbing. NEURO: Alert and oriented x 3. No acute neurological deficits. Speech is normal and follows commands. SKIN: Dry and warm Triage Information Reviewed: Yes Vital Signs: Initial Vital Signs Temp 98.0 F 10/18/17 14:05 Pulse 69 10/18/17 14:05 Resp 16 10/18/17 14:05 BP 118/70 10/18/17 14:05 Pulse Ox 100 10/18/17 14:05 Complaint Female Dx - Course Course Of Treatment: 46 y/o female presents to the urgent care c/o burning pain and frequency on urination since Thursday morning. Pt reports pelvic pressure. Pain w/ urination is 5/10. Pt has taking Azo OTC and cranberry pills and drinking plenty of water to alleviate symptoms. Pt denies flank pain, vaginal D/ C, fever, SOB, chest pain, abdominal pain, N/v/D. Hx obtained. PE:WNL. UA ordred , UA results: trace, Leukoesterase 1+ Nitrates:positive, trace of glucose. Pt Rx Bactrim PO x 7 days. Pyridium 100mg PO TID x 2 days. Advised to increase fluid intake. Urine sent for culture if any abnormality Pt will be notified for further treatment. Pt advised If symptoms do not improve to return to the urgent care or f/u with PCP, specially since there is a trace of glucose in urine and FMHX of DM tyepe II. Pt understood and agreed. Left the clinic ambulating. - Differential Dx/Diagnosis Differential Diagnosis/HQI/PQRI: Cervicitis, Renal Colic, Urinary Tract Infection Provider Diagnoses: 1- Urinary tract infection. 2-Dysuria Discharge - Sign-Out/Discharge Documenting (check all that apply): Patient Departure - D/c home - Discharge Plan Condition: Stable Disposition: HOME Prescriptions: Phenazopyridine TAB* [Pyridium 100 mg TAB*] 100 mg PO TID #6 tab Sulfamethox/Trimethoprim DS* [Bactrim DS 800/160 TAB*] 1 tab PO BID #14 tab Patient Education Materials: Urinary Tract Infection in Women (ED), Dysuria (ED ) Referrals: Ritu Jordan MD [Primary Care Provider] - 3 Days Additional Instructions: 1- Please take Bactrim PO x 7 days. Pyridium 100 mg PO TID x 2 days to alleviate urinary symptoms. Increase increase fluid intake. drink cranberry juice. 2-Urine sent for culture if any abnormality, you will be notified for further treatment. 3-If symptoms do not improve please return to the urgent care or f/u with your PCP for further management. - Billing Disposition and Condition Condition: STABLE Disposition: Home
== END 2017-10-18 16:10 | disposition home or self-care (01) ==
LOC: UCEAST 14:01
DX: N39.0 Urinary tract infection, site not specified (principal); Z82.49 Family history of ischemic heart disease and other diseases of the circulatory system
CPT/HCPCS: 81003; 84702; 87077; 87086; 87186; 99212; G0463

== ENCOUNTER 2018-03-08 10:30 | Emergency (ER) | payer BC ==
[2018-03-08 10:48] VITALS: BP 117/63
--- NOTE | 2018-03-08 11:31 | UC ---
Complaint Female HPI - HPI Summary HPI Summary: 47 yo female presents with urinary burning, pressure, and frequency that began this morning. She tells me that she has a history of chronic UTIs and this feels the same. Denies fever, chills, abdominal pain, n/v, hematuria, or flank pain. - History Of Current Complaint Chief Complaint: UCGU Stated Complaint: BURNING URINATION Time Seen by Provider: 03/08/18 11:31 Hx Obtained From: Patient Hx Last Menstrual Period: unk Onset/Duration: Sudden Onset Timing: Constant Severity Initially: Moderate Severity Currently: Moderate Pain Intensity: 5 Pain Scale Used: 0-10 Numeric - Allergies/Home Medications Allergies/Adverse Reactions: Allergies Allergy/AdvReac Type Severity Reaction Status Date / Time No Known Allergies Allergy Verified 03/08/18 10:48 PMH/Surg Hx/FS Hx/Imm Hx - Additional Past Medical History Additional PMH: None Other History Of: Negative For: HIV, Hepatitis B, Hepatitis C, Anticoagulant Therapy - Surgical History Surgical History: Yes Surgery Procedure, Year, and Place: CSECTION 2008, 2010 [facility] [place]. tubal ligation 2014 - Family History Known Family History: Positive: Cardiac Disease, Hypertension Family History: breast cancer - Social History Occupation: Employed Full-time Lives: With Family Alcohol Use: None Substance Use Type: None Smoking Status (MU): Never Smoked Tobacco Review of Systems All Other Systems Reviewed And Are Negative: Yes Constitutional: Positive: Negative Skin: Positive: Negative Respiratory: Positive: Negative Cardiovascular: Positive: Negative Gastrointestinal: Positive: Negative Genitourinary: Positive: Dysuria Neurovascular: Positive: Negative Neurological: Positive: Negative Psychological: Positive: Negative Physical Exam - Summary Physical Exam Summary: GENERAL: NAD. WDWN. No pain distress. SKIN: No rashes, sores, lesions, or open wounds. NECK: Supple. Nontender. No lymphadenopathy. CHEST: CTAB. No r/r/w. No accessory muscle use. Breathing comfortably and in no distress. CV: RRR. Without m/r/g. Pulses intact. Cap refill <2seconds ABDOMEN: Soft. NTTP. No distention or guarding. No CVA tenderness. Bowel sounds present NEURO: Alert. PSYCH: Age appropriate behavior. Triage Information Reviewed: Yes Vital Signs: Initial Vital Signs Temp 98.3 F 03/08/18 10:45 Pulse 78 03/08/18 10:45 Resp 17 12/24/18 10:45 BP 117/63 03/08/18 10:45 Pulse Ox 100 03/08/18 10:45 Laboratory Tests 03/08/18 11:51 POC Urine Color Yellow POC Urine Clarity Cloudy POC Urine pH 6.0 POC Ur Specif [place] 1.010 POC Urine Protein Negative POC Ur Glucose (UA) Negative POC Urine Ketones Negative POC Urine Blood 2+ A POC Urine Nitrite Positive A POC Urine Bilirubin Negative POC Urine Urobilinogen 0.2 POC U Leukocyte Esteras 3+ A Vital Signs Reviewed: Yes Complaint Female Dx - Course Course Of Treatment: UA with signs of infection. Will treat and send for culture - Differential Dx/Diagnosis Provider Diagnosis: UTI (urinary tract infection) Discharge - Sign-Out/Discharge Documenting (check all that apply): Patient Departure All imaging exams completed and their final reports reviewed: No Studies - Discharge Plan Condition: Stable Disposition: HOME Prescriptions: Nitrofurantoin Monohyd/M-Cryst [Macrobid 100 mg Capsule] 100 mg PO BID #10 cap Nitrofurantoin Monohyd/M-Cryst [Macrobid 100 mg Capsule] 100 mg PO BID #10 cap Phenazopyridine TAB* [Pyridium 100 mg TAB*] 100 mg PO TID #6 tab Phenazopyridine TAB* [Pyridium 100 mg TAB*] 100 mg PO TID #6 tab Patient Education Materials: Urinary Tract Infection in Women (ED) Referrals: Ritu Jordan MD [Primary Care Provider] - Additional Instructions: If you develop a fever, shortness of breath, chest pain, new or worsening symptoms - please call your PCP or go to the ED. - Billing Disposition and Condition Condition: STABLE Disposition: Home
== END 2018-03-08 12:15 | disposition home or self-care (01) ==
LOC: UCEAST 10:30
DX: N39.0 Urinary tract infection, site not specified (principal)
CPT/HCPCS: 81003; 87086; 99212; G0463

== ENCOUNTER 2018-09-02 19:36 | Emergency (ER) | payer BC ==
--- OUTSIDE RECORDS SUMMARY | 2018-09-02 19:42 | XMS REPORT | Continuity of Care Document ---
:1970 External Reference #:[id number] Author Name Edgardo Ivey, OD Address [address] [place] [address] Care Team Providers Name Role Phone Julian BLACKWELL, Ritu Care Team Information Search Marketing Analyst Unavailable Julian BLACKWELL, Ritu Primary Care Physician Unavailable Payers Date Identification Numbers Payment Provider Subscriber Policy Number: [id number] [place] [employer] Beth Vivar PayID: [id number] [address] [place] [address] Family History Date Family Member(s) Observation Comments General Glaucoma General Glasses General Cancer General Diabetes General High BP Father Glasses Father No Current Problems Mother Glaucoma Mother High BP Mother Cancer Mother Glasses Social History Type Date Description Comments Sex Unknown ETOH Use Denies alcohol use Tobacco Use Start: Unknown Patient has never smoked Smoking Status Reviewed: 08/12/18 Patient has never smoked Allergies, Adverse Reactions, Alerts Description No Known Drug Allergies Medications Active Medications SIG Qnty Indications Ordering Provider Date Doxycycline one tab qd x 2 14tabs Maco Thakkar, 07/29/2018 Monohydrate weeks M.D. 50mg Tablets Neomycin/Polymyxin/De apply 1/4 inch 3.500gm Edgardo Ivey, OD 07/22/2018 xamethasone ribbon to right upper lid and 3.5-07525-6.1 lid margin three Ointment times a day x 1 week History Medications No Active Medications Unknown 07/22/2018 - 07/22/2018 Vital Signs Date Vital Result Comment 07/29/2018 10:42am Intraocular Pressure Right Eye 20 mmHg 07/22/2018 1:54pm Intraocular Pressure Right Eye 18 mmHg Intraocular Pressure Left Eye 18 mmHg Encounters Type Date Location Provider Dx Diagnosis Office Visit 07/29/2018 Main Office Edgardo Ivey, OD H00.11 Chalazion right 10:15a upper eyelid Office Visit 07/22/2018 Main Office Edgardo Ivey, OD H00.11 [place] right 1:30p upper eyelid H01.02A Squamous blepharitis right eye, upper and lower eyelids H01.02B Squamous blepharitis left eye, upper and lower eyelids Plan of Treatment 08/12/2018 - Edgardo Ivey, ODH00.11 [place]azion right upper eyelidFollow up:2 weeks possible office surgery with dr thakkar right upper lid
--- OUTSIDE RECORDS SUMMARY | 2018-09-02 19:42 | XMS REPORT | Continuity of Care Document ---
:1970 External Reference #:[id number] Author Name Maco Thakkar M.D. Address [address] [place] [address] Care Team Providers Name Role Phone Julian BLACKWELL, Ritu Care Team Information Academic Manager Unavailable Julian BLACKWELL, Ritu Primary Care Physician Unavailable Payers Date Identification Numbers Payment Provider Subscriber Policy Number: [id number] [employer] Bteh Vivar PayID: [id number] [address] [place] [address] Family History Date Family Member(s) Observation Comments General Glaucoma General Glasses General Cancer General Diabetes General High BP Father Glasses Father No Current Problems Mother Glaucoma Mother High BP Mother Cancer Mother Glasses Social History Type Date Description Comments Sex Unknown ETOH Use Denies alcohol use Tobacco Use Start: Unknown Patient has never smoked Smoking Status Reviewed: 09/01/18 Patient has never smoked Allergies, Adverse Reactions, Alerts Description No Known Drug Allergies Medications Active Medications SIG Qnty Indications Ordering Provider Date Doxycycline one tab every 14tabs Maco Thakkar, 07/29/2018 Monohydrate day x 2 weeks M.D. 50mg Tablets Neomycin/Polymyxin/De apply 1/4 inch 3.500gm Edgardo Ivey, OD 07/22/2018 xamethasone ribbon to right upper lid and 3.5-17272-6.1 lid margin three Ointment times a day x 1 week History Medications No Active Medications Unknown 07/22/2018 - 07/22/2018 Vital Signs Date Vital Result Comment 08/12/2018 10:38am Intraocular Pressure Right Eye 19 mmHg 07/29/2018 10:42am Intraocular Pressure Right Eye 20 mmHg 07/22/2018 1:54pm Intraocular Pressure Right Eye 18 mmHg Intraocular Pressure Left Eye 18 mmHg Procedures Date Code Description Status 09/01/2018 [id number] Eye Exam Est Intermediate Completed Encounters Type Date Location Provider Dx Diagnosis Office Visit 08/12/2018 Main Office Edgardo Ivey, OD H00.11 Chalazion right 10:15a upper eyelid Office Visit 07/29/2018 Main Office Edgardo Uche, OD H00.11 Chalazion right 10:15a upper eyelid Office Visit 07/22/2018 Main Office Edgardo Ivey, OD H00.11 Chalazion right 1:30p upper eyelid H01.02A Squamous blepharitis right eye, upper and lower eyelids H01.02B Squamous blepharitis left eye, upper and lower eyelids Plan of Treatment 09/01/2018 - Maco Thakkar M.D.H00.11 Chalazion right upper eyelidFollow up:1 yr full
[2018-09-02 19:56] VITALS: BP 121/69
--- NOTE | 2018-09-02 20:03 | UC ---
Complaint Female HPI - HPI Summary HPI Summary: Recent 2 day vaginal itching after a doxy course for chalazion. she has tried otc antifungals but not helping. has intense vaginal itching. denies dysuria. - History Of Current Complaint Chief Complaint: UCGU Stated Complaint: YEAST INFECTION Time Seen by Provider: 09/02/18 19:59 Hx Obtained From: Patient Hx Last Menstrual Period: unk Timing: Constant Pain Intensity: 4 Pain Scale Used: 0-10 Numeric Character: Sharp, Burning Aggravating Factor(s): [place] Alleviating Factor(s): Nothing - Allergies/Home Medications Allergies/Adverse Reactions: Allergies Allergy/AdvReac Type Severity Reaction Status Date / Time No Known Allergies Allergy Verified 09/02/18 19:56 PMH/Surg Hx/FS Hx/Imm Hx - Additional Past Medical History Additional PMH: no chronic conditions. Other History Of: Negative For: HIV, Hepatitis B, Hepatitis C, Anticoagulant Therapy - Surgical History Surgical History: Yes Surgery Procedure, Year, and Place: CSECTION 2008, 2010 [facility] [place]. tubal ligation 2014 - Family History Known Family History: Positive: Cardiac Disease, Hypertension Family History: breast cancer - Social History Alcohol Use: None Substance Use Type: None Smoking Status (MU): Never Smoked Tobacco Review of Systems All Other Systems Reviewed And Are Negative: Yes Constitutional: Negative: Fever, Chills, Fatigue Skin: Negative: Rash Genitourinary: Positive: Vaginal/Penile Itching. Negative: Dysuria, Vaginal/ Penile Discharge, Vaginal/Penile Pain, Vaginal/Penile Tenderness Physical Exam Triage Information Reviewed: Yes Appearance: Well-Appearing Vital Signs: Initial Vital Signs Temp 99.4 F 09/02/18 19:50 Pulse 64 09/02/18 19:50 Resp 12 09/02/18 19:50 BP 121/69 09/02/18 19:50 Pulse Ox 98 09/02/18 19:50 Vital Signs Reviewed: Yes Pelvic Exam: Positive: Other - DECLINES EXAM Complaint Female Dx - Course Course Of Treatment: vaGINITIS FROM LIKELY FUNGAL SOURCE AFTER ANTIfungal TX. she declined gu exam. declined sti testing as well as affirm. will tx w/ antifungal and if worsening should be re-evaluated. - Differential Dx/Diagnosis Differential Diagnosis/HQI/PQRI: Sexually Transmitted Disease, Urinary Tract Infection Provider Diagnosis: Vaginitis Discharge - Sign-Out/Discharge Documenting (check all that apply): Patient Departure All imaging exams completed and their final reports reviewed: No Studies - Discharge Plan Condition: Good Disposition: HOME Prescriptions: Fluconazole 150 MG TAB* [Diflucan 150 MG TAB*] 150 mg PO ONCE 1 Days #1 tablet Patient Education Materials: Vaginitis (ED) Referrals: Ritu Jordan MD [Primary Care Provider] - Additional Instructions: wE ARE SUSPECTING THAT YOU HAVE A YEAST-BASED INFECTION. - Billing Disposition and Condition Condition: GOOD Disposition: Home - Attestation Statements Provider Attestation: Per institutional requirements, I have reviewed the chart, however, I was not consulted specifically or made aware of this patient by the midlevel provider. I did not personally evaluate, interact with , or disposition this patient.
== END 2018-09-02 20:20 | disposition home or self-care (01) ==
LOC: UCEAST 19:36
DX: N76.0 Acute vaginitis (principal)
CPT/HCPCS: 81003; 99212; G0463